=== PATIENT | male | born 1980 | race Caucasian/White ===

== ENCOUNTER 2017-04-13 08:24 | Emergency (ER) | payer SELFPAY ==
[~2017-04-13] VITALS: Ht 177.8 cm; Wt 121.1 kg
[2017-04-13] MEDS ORDERED: IPRATRPIUM/ALBUTEROL 0.5/2.5MG 3 ML NEBU. NEB ONE (08:45)
[2017-04-13] MEDS ORDERED: IPRATRPIUM/ALBUTEROL 0.5/2.5MG 3 ML NEBU. ONE (08:50)
[2017-04-13] MEDS ORDERED: PRED50TA PO (08:52)
[2017-04-13] MEDS ORDERED: ALBU18HF IH (08:52)
--- NOTE | 2017-04-13 08:52 | PHYS DOC ---
Past History Additional Past Medical Histor: diabetes mellitus and COPD Alcohol Use: Rarely Drug Use: None Adult General Chief Complaint Chief Complaint: COUGH HPI HPI This is a pleasant 36-year-old male presenting to the emergency department with generalized fatigue and malaise with cough and sore throat. This started about 48 hours ago. His sore throat is her brought itching burning sensation in the back of his throat. He denies fevers or chills at home. He has noticed productive sputum that is green yellow in color. He denies abdominal pain nausea vomiting. The pain in his throat is nonradiating. He denies chest pain and reports a chronic baseline shortness of breath that hss been present for many years from COPD. Review of systems is negative for abdominal pain fevers chills nausea vomiting diarrhea constipation bloody stools. All other review of systems is negative unless otherwise noted in history of present illness. ED course: 36-year-old male presenting to the emergency department with cough with productive sputum sore throat. Upon arrival the patient is afebrile with a normal heart rate. Chest x-ray and blood work obtained. Chest x-ray negative shows mild opacification of the retrocardiac space could be secondary to atelectasis versus small infiltrate. Blood work unremarkable other than hyperglycemia which is consistent with patient's known diabetes. No evidence of acidosis. The patient was given a nebulizer in the emergency department. He was in discharged home with oral prednisone and his nebulizer to follow-up with his primary care doctor in a few days. Also received a prescription for azithromycin for this change in sputum production in conjunction with mild radio opacification in the retrocardiac space on the lateral film. The patient was then discharged home in stable condition to follow up with their primary care physician over the next 2-3 days. They were to return if their symptoms worsened or if they were concerned for any reason. [id number] discharge instructions and return precautions were given. Patient's questions were answered to their satisfaction. Patient is comfortable plan. Review of Systems Review of Systems SEE ABOVE. Current Medications Current Medications Current Medications Medications (Trade) Dose Ordered Sig/Laura Start Time Stop Time Status Last Admin Dose Admin Albuterol/ Ipratropium (Duoneb) 3 ml 1X ONCE 04/13/17 08:45 04/13/17 08:46 UNV Physical Exam Physical Exam SEE ABOVE Constitutional: Well developed, well nourished, no acute distress, non-toxic appearance. [] HENT: Normocephalic, atraumatic, bilateral external ears normal, oropharynx moist, no oral exudates, nose normal. [] Eyes: PERRLA, EOMI, conjunctiva normal, no discharge. Neck: Normal range of motion, no tenderness, supple, no stridor. [] Cardiovascular:Heart rate regular rhythm, no murmur Lungs & Thorax: Mild wheezing with prolonged expiratory phase bilaterally. No crackles. Abdomen: Bowel sounds normal, soft, no tenderness, no masses, no pulsatile masses. Skin: Warm, dry, no erythema, no rash. [] Back: No tenderness, no CVA tenderness. [] Extremities: No tenderness, no cyanosis, no clubbing, ROM intact, no edema. Neurologic: Alert and oriented X 3, normal motor function, normal sensory function, no focal deficits noted. [] Psychologic: Affect normal, judgement normal, mood normal. [] EKG EKG [] Radiology/Procedures Radiology/Procedures [] Course & Med Decision Making Course & Med Decision Making Pertinent Labs and Imaging studies reviewed. (See chart for details) [] Dragon Disclaimer Dragon Disclaimer This electronic medical record was generated, in whole or in part, using a voice recognition dictation system. Departure Departure: Impression: Primary Impression: Cough Additional Impressions: Sore throat Sputum production Abnormal sputum color Disposition: 01 HOME, SELF-CARE Condition: STABLE Referrals: PCP,NO (PCP) Patient Instructions: Chronic Obstructive Pulmonary Disease Additional Instructions: Thank you for allowing us to participate in your care today. Followup with your primary care physician in 3 days if your symptoms do not improve. Call your Primary Doctor tomorrow and inform them of your visit today. If you do not have a primary care provider you can ask for a list of our primary care providers. Return to the emergency department you have any new or concerning findings. This should be evaluated by the primary care physician and any necessary consulting services for continued management within a few days after discharge. Return to emergency room if you have any new or concerning symptoms including but not limited to fever, chills, nausea, vomiting, intractable pain, any new rashes, chest pain, shortness of air, uncontrolled bleeding, difficulty breathing, and/or vision loss. Scripts Azithromycin (ZITHROMAX PACKET) 1 Gm Packet 1 PACKET PO ONCE, #1 PACKET Prov: TAYLER MENDIETA MD 04/13/17 Albuterol Sulfate (VENTOLIN HFA INHALER) 18 Gm Hfa.aer.ad 1 PUFF IH PRN Q4HRS Y for FOR ASTHMA for 7 Days, INHALER 0 Refills Prov: TAYLER MENDIETA MD 04/13/17 Prednisone (PREDNISONE) 50 Mg Tablet 1 TAB PO DAILY, #4 TAB You received this medication in the emergency room today. You will starting your next dose tomorrow. Prov: TAYLER MENDIETA MD 04/13/17 Problem Qualifiers TAYLER MENDIETA MD Apr 13, 2017 08:52
[2017-04-13 09:06] LABS: BASO # 0.1 x10^3/uL (0.0-0.2); BASO % 1 % (0-3); EOS # 0.2 x10^3/uL (0.0-0.7); EOS % 2 % (0-3); HEMATOCRIT 47.4 % (39.0-53.0); HEMOGLOBIN 16.5 g/dL (13.0-17.5); LYMPH # 2.2 x10^3/uL (1.0-4.8); LYMPH % 22 % (24-48); MEAN CORPUSCULAR HEMOGLOBIN 30 pg (25-35); MEAN CORPUSCULAR HGB CONC 35 g/dL (31-37); MEAN CORPUSCULAR VOLUME 86 fL (79-100); MONO # 0.7 x10^3/uL (0.0-1.1); MONO % 7 % (0-9); NEUT # 6.5 x10^3uL (1.8-7.7); NEUT % 67 % (31-73); PLATELET COUNT 159 x10^3/uL (140-400); RED BLOOD COUNT 5.51 x10^6/uL (4.30-5.70); RED CELL DISTRIBUTION WIDTH 13.7 % (11.5-14.5); WHITE BLOOD COUNT 9.7 x10^3/uL (4.0-11.0)
[2017-04-13 09:10] LABS: CALCIUM 8.9 mg/dL (8.5-10.1); CREATININE 1.1 mg/dL (0.7-1.3); GFR 74.9; POTASSIUM 3.7 mmol/L (3.5-5.1)
[2017-04-13 09:47] VITALS: BP 123/66
[2017-04-13] MEDS ORDERED: AZIT1PAC PO (09:47)
--- NOTE | 2017-04-13 09:56 | RAD ---
2 views of the Chest 04/13/2017 10:40 AM Indication: cough Comparison: None Findings: There is no focal consolidation or infiltrate identified. There is no effusion or pneumothorax. The cardiomediastinal silhouette and pulmonary vasculature are within normal limits. No osseous abnormality is identified. Impression: No evidence of acute cardiopulmonary process.
[2017-04-13] MEDS ORDERED: predniSONE 10 MG TABLET PO ONE (10:00)
== END 2017-04-13 09:52 | disposition home or self-care (01) ==
LOC: ER 08:24
DX: J02.9 Acute pharyngitis, unspecified (principal); R09.3 Abnormal sputum; E11.65 Type 2 diabetes mellitus with hyperglycemia; J44.9 Chronic obstructive pulmonary disease, unspecified
CPT/HCPCS: 36415; 71020; 80048; 85025; 87070; 87880; 94640; 99285; J7512; J7620